=== PATIENT | male | born 1960 | race Caucasian/White ===

== ENCOUNTER 2017-03-25 10:36 | Inpatient (IN) | payer OTHER ==
[~2017-03-25] VITALS: Ht 165.1 cm; Wt 97.5 kg
[2017-03-25 10:45] VITALS: Ht 165.1 cm; Wt 97.5 kg
[2017-03-25 11:10] LABS: PLATELET COUNT 270 x10^3mcL (130-400); RED CELL DISTRIBUTION WIDTH 13.8 % (11.5-14.5)
[2017-03-25 11:28] LABS: CALCIUM 8.8 mg/dL (8.5-10.1); CHLORIDE SERUM 103 mmol/L (98-107); CREATININE SERUM 0.9 mg/dL (0.7-1.3); GFR1 > 60 mL/min; GLUCOSE SERUM 99 mg/dL (74-106); POTASSIUM SERUM 3.8 mmol/L (3.5-5.1); SODIUM SERUM 141 mmol/L (136-145)
[2017-03-25 11:33] LABS: ALKALINE PHOSPHATASE 78 U/L (46-116); ALT/SGPT 40 U/L (16-63); AST/SGOT 29 U/L (15-37); BILIRUBIN TOTAL 0.3 mg/dL (0.20-1.00)
[2017-03-25 11:34] LABS: TOTAL PROTEIN, SERUM 8.5 g/dL (6.4-8.2)
[2017-03-25 14:14] VITALS: BP 141/90
[2017-03-25 16:11] LABS: MAGNESIUM 2.1 mg/dL (1.8-2.4); PHOSPHOROUS 4.1 mg/dL (2.5-4.9)
[2017-03-25 16:23] LABS: T3 TOTAL 1.19 ng/mL
[2017-03-25 17:05] VITALS: BP 132/80
[2017-03-25 17:31] LABS: FREE T4 0.91 ng/dL (0.76-1.46); FREE THYROXINE INDEX 2.3 ug/dL (1.4-4.5); T4(THYROXINE) 6.7 ug/dL (4.7-13.3)
[2017-03-25 21:30] LABS: microscopic required? NO
[2017-03-25 21:40] LABS: UA SPECIFIC GRAVITY 1.015 (1.005-1.035); urine erythrocyte NEGATIVE (NEGATIVE)
[2017-03-25 21:48] VITALS: BP 124/77
[2017-03-25 21:48] LABS: AMPHETAMINE QUAL UR NONE DETECTED (NEG <=1000)
[2017-03-26 03:59] LABS: PLATELET COUNT 239 x10^3mcL (130-400); RED CELL DISTRIBUTION WIDTH 13.8 % (11.5-14.5)
[2017-03-26 04:15] LABS: CALCIUM 8.4 mg/dL (8.5-10.1); CARBON DIOXIDE 26.6 mmol/L (21-32); CHLORIDE SERUM 106 mmol/L (98-107); CREATININE SERUM 0.9 mg/dL (0.7-1.3); GFR1 > 60 mL/min; GLUCOSE SERUM 99 mg/dL (74-106); POTASSIUM SERUM 4.1 mmol/L (3.5-5.1); SODIUM SERUM 142 mmol/L (136-145)
[2017-03-26 06:20] VITALS: BP 131/85
[2017-03-26 09:00] VITALS: BP 122/79; BP 139/85
[2017-03-26 13:19] VITALS: BP 124/83
[2017-03-26 17:22] VITALS: BP 138/80
[2017-03-26 21:41] VITALS: BP 128/74
[2017-03-27 05:53] VITALS: BP 120/78
[2017-03-27 06:39] LABS: CHOLESTEROL/HDL RATIO 3.3
[2017-03-27 09:06] VITALS: BP 143/80
[2017-03-27 11:39] VITALS: BP 138/67
[2017-03-27 11:59] VITALS: BP 116/71
[2017-03-27] MEDS ORDERED: LIPI10 PO (13:03)
[2017-03-27] MEDS ORDERED: ECO81 PO (13:03)
[2017-03-27 15:40] VITALS: BP 129/71
[2017-03-27] MEDS ORDERED: TOPROL XL25 MG PO (15:41)
== END 2017-03-27 16:55 | disposition home or self-care (01) | DRG 392 ==
LOC: ED 10:36 → DU 12:16
PROVIDERS: Emergency Medicine; Family Medicine; Internal Medicine Interventional Cardiology
DX: K21.9 Gastro-esophageal reflux disease without esophagitis (principal); I16.0 Hypertensive urgency; I10 Essential (primary) hypertension; G51.0 Bell's palsy; B94.8 Sequelae of other specified infectious and parasitic diseases; R73.03 Prediabetes; F17.210 Nicotine dependence, cigarettes, uncomplicated; E66.9 Obesity, unspecified; Z68.35 Body mass index [BMI] 35.0-35.9, adult; Z83.3 Family history of diabetes mellitus
CPT/HCPCS: 83880; 84439; J3010; Q0092